=== PATIENT | female | born 2000 | race Caucasian/White ===

== ENCOUNTER 2019-05-08 19:14 | Day surgery (SDC) | payer SELFPAY ==
[2019-05-08] MEDS ORDERED: KETOROLAC 30 MG/ML VIAL IVP ONE (19:34)
[2019-05-08] MEDS ORDERED: 0.9 % SODIUM CHLORIDE 1,000 ML BAG IV ONE ×2 (19:34→22:50)
--- NOTE | 2019-05-08 19:37 | Emergency Department Record ---
History of Present Illness - General Chief Complaint: Abdominal Pain Stated Complaint: ABD PAIN Time Seen by Provider: 05/08/19 19:33 Source: Patient Mode of Arrival: Ambulatory Limitations: No limitations - History of Present Illness Initial Comments: 18 yo female presents with right side lower abdominal pain that comes and goes over the last three days. The pain is sharp. It last several hours at a time. No fever. No urinary discomfort. She actually reports some discomfort after a urination but not with urination itself. No blood in the stool or urine. No abdominal surgery history. Normal menstrual cycles. MD Complaint: Abdominal pain Onset/Timin -: Days(s) (3) Location: RLQ Migration to: Suprapubic Severity: Moderate Severity scale (1-10): 5 Consistency: Intermittent Improves With: Nothing Worsens With: Movement Associated Symptoms: Dysuria - Related Data LMP (females 10-50): 3 weeks ago Patient : No Allergies Allergy/AdvReac Type Severity Reaction Status Date / Time No Known Allergies Allergy PT UNSURE Verified 05/08/19 21:40 OF REACTION Travel Screening - Travel/Exposure Within Last 30 Days Have you traveled within the last 30 days?: No - Travel Symptoms Symptom Screening: None Past Medical History - SOCIAL HISTORY Smoking Status: Light tobacco smoker (<10/day) Alcohol Use: None Drug Use: None - RESPIRATORY Hx Respiratory Disorders: No - CARDIOVASCULAR Hx Cardio Disorders: No - NEURO Hx Neuro Disorders: No - GI Hx GI Disorders: No - Hx Genitourinary Disorders: No - ENDOCRINE Hx Endocrine Disorders: No - MUSCULOSKELETAL Hx Musculoskeletal Disorders: No - PSYCH Hx Psych Problems: No - HEMATOLOGY/ONCOLOGY Hx Hematology/Oncology Disorders: No Family Medical History Any Significant Family History?: Yes Hx Heart Disease: Father Physical Exam - General General Appearance: Alert, Oriented x3, Cooperative, No acute distress Limitations: No limitations - Head Head exam: Atraumatic, Normal inspection - Eye Eye exam: Normal appearance. negative: Conjunctival injection - ENT ENT exam: Normal exam Ear exam: Normal external inspection Nasal Exam: Normal inspection Mouth exam: Normal external inspection - Neck Neck exam: Normal inspection - Respiratory Respiratory exam: Normal lung sounds bilaterally. negative: Respiratory distress - Cardiovascular Cardiovascular Exam: Regular rate, Normal rhythm, Normal heart sounds - GI/Abdominal GI/Abdominal exam: Soft, Tenderness (tender but soft in the RLQ, otherwise the abdomen is very soft and non tender). negative: Distended, Guarding, Hypoactive bowel sounds, Rebound - Rectal Rectal exam: Deferred - exam: Vaginal discharge (moderate, whitish). negative: Abnormal external exam, Adnexal mass (L), Adnexal mass (R), Adnexal tenderness (L), Adnexal tenderness (R), Cervical discharge, cervical motion tenderness, Vaginal bleeding - Extremities Extremities exam: Normal inspection - Back Back exam: Denies: CVA tenderness (R), CVA tenderness (L), Paraspinal tenderness, Vertebral tenderness - Neurological Neurological exam: Alert, Oriented X3 - Psychiatric Psychiatric exam: Normal affect, Normal mood - Skin Skin exam: Dry, Intact, Normal color, Warm Course Vital Signs 05/08/19 19:18 Temperature 98.5 F Pulse Rate [ 76 Pulse Ox Probe] Respiratory 20 Rate Blood Pressure 125/83 [Left Arm] Pulse Ox 98 - Reevaluation(s) Reevaluation #1: 05/08/19 20:08 The CBC was reviewed WBC is 13 The HCG is negative The UA is negative 05/08/19 20:09 No acute process on CMP or Lipase 05/08/19 22:03 Wet prep is negative Pain controlled at this time waiting for CT scan. 05/08/19 22:[address] is consistent with appendicitis. 8-9 mm with mild stranding, no abscess, no free air The case was discussed with Dr Carrizales The plan is admission, OR tomorrow Medical Decision Making - Lab Data Result diagrams: 05/08/19 19:44 05/08/19 19:44 Disposition Disposition: Admit Clinical Impression: Appendicitis Qualifiers: Appendicitis type: acute appendicitis Acute appendicitis type: unspecified acute appendicitis type Qualified Code(s): K35.80 - Unspecified acute appendicitis Disposition: Still a Patient at [facility] Decision to Admit: Admit from ER Decision to Admit Date: 05/08/19 Decision to Admit Time: 22:59 Condition: (1) Good Time of Disposition: 22:59 Quality - Quality Measures Quality Measures: N/A - Blood Pressure Screening Does Patient Have Any of the Following: No Blood Pressure Classification: Hypertensive Reading Systolic Measurement: 132 Diastolic Measurement: 90 Screening for High Blood Pressure: < Pre-Hypertensive BP, F/U Documented > [G8950] Pre-Hypertensive Follow-up Interventions: Referral to alternative/primary care provider.
[2019-05-08 19:52] LABS: URINE APPEARANCE CLOUDY; URINE BILIRUBIN NEGATIVE (NEGATIVE); URINE BLOOD NEGATIVE (NEGATIVE); URINE COLOR YELLOW; URINE GLUCOSE (UA) NEGATIVE (NEGATIVE); URINE KETONE NEGATIVE (NEGATIVE); URINE LEUKOCYTE ESTERASE NEGATIVE (NEGATIVE); URINE NITRITE NEGATIVE (NEGATIVE); URINE PROTEIN NEGATIVE (NEGATIVE)
[2019-05-08 19:52] LABS: ABSOLUTE NEUTROPHIL COUNT 9.14; BASO % 0.2 % (0-6); EOS % 3.1 % (0-6); GRAN % 68.4 % (47-80); HEMATOCRIT 40.5 % (35.0-47.0); HEMOGLOBIN 13.6 gm/dl (11.6-16.0); LYMPH % 22.7 % (16-45); MEAN CELL VOLUME 86.5 fl (81-97); MEAN CORPUSCULAR HEMOGLOBIN 29.1 pg (27-33); MEAN CORPUSCULAR HGB CONC 33.6 g/dl (32-36); MEAN PLATELET VOLUME 11.3 fl (7.4-10.4); MONO % 5.6 % (0-9); PLATELET COUNT 314 K/uL (130-400); RED BLOOD COUNT 4.68 M/uL (3.80-5.40); RED CELL DISTRIBUTION WIDTH 12.8 % (11.5-14.5); WHITE BLOOD COUNT W/O DIFF 13.3 K/uL (4.2-12.2)
[2019-05-08 19:56] LABS: HCG,QUALITATIVE URINE NEGATIVE (NEGATIVE)
[2019-05-08 20:03] LABS: BLOOD UREA NITROGEN 11 mg/dL (6-20); CREATININE 0.6 mg/dL (0.5-0.9); LIPASE 18 U/L (13-60); TOTAL PROTEIN 7.9 g/dL (6.6-8.7)
[2019-05-08 20:05] LABS: GLUCOSE,RANDOM 110 mg/dL (74-109)
[2019-05-08 20:08] LABS: ALB/GLOB RATIO 1.5 (1.1-1.8); ALBUMIN 4.7 g/dL (4.0-5.0); ALKALINE PHOSPHATASE 85 U/L (35-104); ALT/SGPT 15 U/L (<33); AST/SGOT 17 U/L (10.0-35.0)
[2019-05-08] MEDS ORDERED: ERTAPENEM SODIUM 1 G in 0.9 % SODIUM CHLORIDE 100ML 100 ML IVPB ONE (22:50)
[2019-05-08] MEDS ORDERED: 0.9 % SODIUM CHLORIDE 1000ML 1,000 ML IV PRN (23:15)
[2019-05-08] MEDS ORDERED: ONDANSETRON HCL IV 4 MG/2 ML VIAL IVP PRN (23:15)
[2019-05-08] MEDS: MORPHINE SULFATE 10MG/1ML **1ML VIAL IVP PRN (23:59)
[2019-05-09] MEDS: ACETAMINOPHEN 1,000 MG/100 ML BTL IVPB SCH ×4 (00:05→18:07)
[2019-05-09] MEDS: MORPHINE SULFATE 10MG/1ML **1ML VIAL IVP PRN ×3 (04:21→16:54)
[2019-05-09] MEDS ORDERED: FAMOTIDINE 20MG TABLET PO ONE (14:00)
[2019-05-09] MEDS ORDERED: METOCLOPRAMIDE 10 MG TABLET PO ONE (14:00)
[2019-05-09] MEDS ORDERED: MECLIZINE 25 MG TABLET PO ONE (14:00)
[2019-05-09] MEDS ORDERED: 0.9 % SODIUM CHLORIDE 1000ML 1,000 ML IV ONE ×2 (14:35→15:12)
[2019-05-09] MEDS ORDERED: SCOPOLAMINE 1 PATCH TDSY TD ONE (14:59)
[2019-05-09] MEDS ORDERED: RINGERS SOLUTION,LACTATED 1,000 ML IV ONE (15:25)
[2019-05-09] MEDS ORDERED: BUPIVACAINE 0.25% W/EPI MPF 30ML VIAL SQ ONE ×2 (15:30)
--- NOTE | 2019-05-09 17:30 | Operative Note ---
DATE OF SURGERY: 05/08/2019 SURGEON: Regulo Carrizales DO PREOPERATIVE DIAGNOSIS: Acute appendicitis. POSTOPERATIVE DIAGNOSIS: Acute appendicitis. OPERATION: Laparoscopic appendectomy. INDICATION: The patient is a 18-year-old female who is having ongoing right lower quadrant pain. She went to [facility] where workup was done. Findings were consistent with acute appendicitis. We did discuss appendectomy. Risks, benefits, and alternatives were discussed. Risks include bleeding, infection, postop abscess formation. She understood this fully. PROCEDURE: After consent was signed and questions answered, she was taken to the operating room and placed in the supine position. General anesthesia was administered per the department of anesthesia. The patient's abdomen was prepped in the usual sterile fashion. The left arm was then tucked to the side. At this time, the infraumbilical region was anesthetized with a total of 5 mL of 0.25% Sensorcaine with epinephrine. A 2 cm infraumbilical incision was made. This was carried down to the anterior rectus fascia. This was incised. Bhavana clamps were placed on the fascial edges and brought up into the wound. Stay sutures of 0 Vicryl were placed. Posterior rectus sheath was identified and incised. The peritoneal cavity was entered bluntly. At this time, a 10 mm blunt Edwin port was placed. Adequate pneumoperitoneum established. Under direct visualization, additional 5 mm right subcostal and 5 mm suprapubic ports were placed. The patient was then rotated into a steep Trendelenburg position with rotation to the left. Appendix was located in the right mid abdomen. This was lifted anteriorly. Mesoappendix was taken down serially with the IVANA Harmonic. This was taken down to the base of the appendix. Of note, the appendix was dilated and inflamed consistent with acute appendicitis. At this time, an Endo-MAICOL 45 mm stapling device was used to transect the appendix at the base of the cecum. This was then placed in the EndoCatch bag and brought out through the umbilical port. The right lower quadrant was rechecked and found to be hemostatic. No bleeding, no leakage from the staple line, no purulent fluid noted. The rest of the external exam with small and large bowel was normal. Pelvis appeared normal. At this time, the patient was leveled out, pneumoperitoneum was released. All ports were removed. The fascia was closed with 0 Vicryl in a [id number] fashion. The skin of all 3 ports was closed with 4-0 Vicryl. She was taken to the recovery room in stable condition. FINDINGS ON SURGERY: Acute appendicitis without abscess or rupture. MTDD
[2019-05-09] MEDS ORDERED: SUGAMMADEX SODIUM 200 MG/2 ML VIAL IV ONE (18:29)
[2019-05-09] MEDS ORDERED: KETOROLAC 30 MG/ML VIAL IVP ONE (18:29)
[2019-05-09] MEDS ORDERED: DIPHENHYDRAMINE HCL 50 MG/ML VIAL IVP ONE (18:29)
[2019-05-09] MEDS ORDERED: PROPOFOL 10 MG/ML VIAL IV ONE (18:29)
[2019-05-09] MEDS ORDERED: SEVOFLURANE 250 ML INH ONE (18:29)
[2019-05-09] MEDS ORDERED: DEXAMETHASONE 4 MG/ML 1ML VIAL IVP ONE (18:29)
[2019-05-09] MEDS ORDERED: FENTANYL PF 100MCG/2ML VIAL IV ONE (18:29)
[2019-05-09] MEDS ORDERED: SUCCINYLCHOLINE 20 MG/ML 10ML IVP ONE (18:29)
[2019-05-09] MEDS ORDERED: ROCURONIUM BROMIDE 50MG/5ML VIAL IV ONE (18:29)
[2019-05-09] MEDS ORDERED: LIDOCAINE 2% MDV (20MG/ML) 20ML VIAL IV ONE (18:29)
[2019-05-09] MEDS ORDERED: MIDAZOLAM HCL 2MG/2ML VIAL IV ONE (18:29)
[2019-05-09] MEDS ORDERED: ONDANSETRON HCL IV 4 MG/2 ML VIAL IVP ONE (18:29)
[2019-05-09 21:12] LABS: GC SPECIMEN TYPE Vaginal
[2019-05-09] MEDS ORDERED: ERTAPENEM SODIUM 1 G in 0.9 % SODIUM CHLORIDE 100ML 100 ML IVPB SCH (23:00)
--- NOTE | 2019-05-10 06:03 | CT SCAN REPORT ---
EXAM: CT SCAN ABDOMEN/PELVIS W CONTRAST HISTORY: 18-YEAR-OLD FEMALE WITH ABDOMINAL PAIN, RIGHT LOWER QUADRANT. TECHNIQUE: Routine CT images of the abdomen and pelvis were obtained following intravenous administration of contrast. Amount and type of contrast in the medical record. COMPARISON: None. FINDINGS: Visualized lung bases are unremarkable. Liver, gallbladder, biliary tree, pancreas, spleen, and adrenals are unremarkable. There are punctate 2 mm intrarenal calculi bilaterally. No ureteral calculi or hydronephrosis. No gastrointestinal inflammatory change. The appendix is mildly dilated measuring 8 mm in caliber. There is minimal periappendiceal fat stranding. Findings are suggestive of early acute appendicitis given patient's clinical history. Bladder unremarkable. Uterus is present. There is a 2.7 cm right ovary cyst, probably a functional cyst. Aorta enhances normally with contrast. No abdominal or pelvic lymphadenopathy. No free air or significant free air. Abdominal wall soft tissues are unremarkable. No acute osseous abnormality. IMPRESSION: 1. FINDINGS COMPATIBLE WITH EARLY ACUTE APPENDICITIS. MINIMAL APPENDICEAL DILATION AND PERIAPPENDICEAL FAT STRANDING. 2. NONOBSTRUCTING INTRARENAL CALCULI. 3. A 2.7 CM RIGHT OVARIAN CYST, PROBABLY A FUNCTIONAL CYST. JOB NUMBER: [id number] MTDD
== END 2019-05-09 18:30 | disposition home or self-care (01) ==
LOC: ER 19:14 → MEDSURG 23:14 → SUR 23:14 → UNDOADMOB 23:14 → MEDSURG 23:14 → UNDOADMOB 23:53 → MEDSURG 23:53 → SUR 05-09 18:30 → UNDODISOB 05-09 18:30
PROVIDERS: ATTEND Surgery
DX: K35.80 Unspecified acute appendicitis (principal); F17.210 Nicotine dependence, cigarettes, uncomplicated
CPT/HCPCS: 74177; 80053; 81003; 81025; 83690; 85025; 87210; 96365; 96374; 99285; J0330; J1200; J1885; J2270; J2405; J3490; J7030; J7120

== ENCOUNTER 2019-10-21 11:48 | Emergency (ER) | payer MEDICAID ==
[2019-10-21] MEDS ORDERED: ONDANSETRON 4 MG ODT TABLET SL ONE (12:15)
[2019-10-21] MEDS ORDERED: ACETAMINOPHEN 325 MG TAB PO ONE (12:15)
--- NOTE | 2019-10-21 12:19 | Emergency Department Record ---
History of Present Illness - General Chief complaint: Flu Like Symptoms Stated complaint: FLU LIKE SYMPTOMS Time Seen by Provider: 10/21/19 12:04 Source: Patient Mode of Arrival: Ambulatory Limitations: No limitations - History of Present Illness Initial comments: The patient is here due to a 3 hour hx of nausea, mild dry heaves and 3-4 episodes of loose watery stools. She is having mild abdominal cramping also. There is no hx of fever, back pain, dysuria, or any vaginal issues. The patient states her boyfriend was ill with the same complaints the last 2 days. MD complaint: Diarrhea, Nausea Onset/Timin -: Hour(s) Severity: Moderate Severity scale (1-10): 5 Consistency: Constant - Related Data Previous Rx's Medication Instructions Recorded Ondansetron [Zofran Odt] 4 mg SL .Q4-6H PRN #12 tab.rapdis 10/21/19 Allergies Allergy/AdvReac Type Severity Reaction Status Date / Time No Known Allergies Allergy PT UNSURE Verified 05/08/19 21:40 OF REACTION Travel Screening - Travel/Exposure Within Last 30 Days Have you traveled within the last 30 days?: No - Travel/Exposure Within Last Year Have you traveled outside the [place] in the last year?: No - Additonal Travel Details Have you been exposed to anyone with a communicable illness?: No - Travel Symptoms Symptom Screening: Diarrhea, Vomiting, Stomach Pain, Lack of Appetite Review of Systems Constitutional: Denies: Chills, Fever Eyes: Denies: Eye discharge ENT: Denies: Congestion Respiratory: Denies: Cough, Dyspnea Past Medical History - SOCIAL HISTORY Smoking Status: Light tobacco smoker (<10/day) Alcohol Use: None Drug Use: None - RESPIRATORY Hx Respiratory Disorders: No - CARDIOVASCULAR Hx Cardio Disorders: No - NEURO Hx Neuro Disorders: No - GI Hx GI Disorders: Yes Hx Abdominal Pain: Yes (RLQ) - Hx Genitourinary Disorders: No - ENDOCRINE Hx Endocrine Disorders: No - MUSCULOSKELETAL Hx Musculoskeletal Disorders: No - PSYCH Hx Psych Problems: No - HEMATOLOGY/ONCOLOGY Hx Hematology/Oncology Disorders: No Family Medical History Any Significant Family History?: Yes Hx Heart Disease: Father Hx Stroke: Grandparents Physical Exam - General General Appearance: Alert, Oriented x3, Cooperative, No acute distress - Head Head exam: Atraumatic, Normocephalic, Normal inspection - Eye Eye exam: Normal appearance, PERRL - ENT Throat exam: Normal inspection. negative: Tonsillar erythema, Tonsillar exudate - Neck Neck exam: Normal inspection, Full ROM. negative: Tenderness - Respiratory Respiratory exam: Normal lung sounds bilaterally. negative: Respiratory distress - Cardiovascular Cardiovascular Exam: Regular rate, Normal rhythm, Normal heart sounds - GI/Abdominal GI/Abdominal exam: Soft, Normal bowel sounds. negative: Rebound, Rigid, Tenderness - Extremities Extremities exam: Normal inspection, Full ROM, Normal capillary refill. negative: Tenderness - Neurological Neurological exam: Alert. negative: Motor sensory deficit Course Vital Signs 10/21/19 11:51 Temperature 97.7 F Pulse Rate 84 Respiratory 18 Rate Blood Pressure 123/71 Pulse Ox 98 - Reevaluation(s) Reevaluation #1: The patient is doing a lot better at this time. She states her nausea has resolved and the mild cramping she was experiencing is now gone. On exam her temp is normal and her abdomen very soft and nontender. I did discuss the need f or 2 days off work and to use the Zofran for nausea. 10/21/19 13:16 Medical Decision Making - Data Complexity MDM Data: Labs Ordered and/or Reviewed Disposition Disposition: Discharge Clinical Impression: Gastroenteritis Disposition: Home, Self-Care Condition: (2) Stable Instructions: Acute Nausea and Vomiting (ED) Additional Instructions: Please use the Zofran for nausea and drink plenty of fluids. Use Motrin or Tylenol for pain and rest and be off work 2 days. Return to the ER for any worsening vomiting, diarrhea, fever or pain. Prescriptions: Ondansetron [Zofran Odt] 4 mg SL .Q4-6H PRN #12 tab.rapdis PRN Reason: Nausea Forms: Patient Portal Access Time of Disposition: 13:14 Quality - Quality Measures Quality Measures: N/A - Blood Pressure Screening View Details: Yes Does Patient Have Any of the Following: No Blood Pressure Classification: Pre-Hypertensive BP Reading Systolic Measurement: 123 Diastolic Measurement: 71 Screening for High Blood Pressure: < Pre-Hypertensive BP, F/U Documented > [G8950] Pre-Hypertensive Follow-up Interventions: Referral to alternative/primary care provider.
[2019-10-21 13:02] LABS: URINE APPEARANCE CLEAR; URINE BILIRUBIN NEGATIVE (NEGATIVE); URINE BLOOD NEGATIVE (NEGATIVE); URINE COLOR YELLOW; URINE GLUCOSE (UA) NEGATIVE (NEGATIVE); URINE KETONE 15 mg/dL (NEGATIVE); URINE LEUKOCYTE ESTERASE NEGATIVE (NEGATIVE); URINE NITRITE NEGATIVE (NEGATIVE); URINE PROTEIN NEGATIVE (NEGATIVE)
[2019-10-21 13:06] LABS: HCG,QUALITATIVE URINE NEGATIVE (NEGATIVE)
== END 2019-10-21 13:22 | disposition home or self-care (01) ==
LOC: ER 11:48
DX: K52.9 Noninfective gastroenteritis and colitis, unspecified (principal); R10.31 Right lower quadrant pain; R11.0 Nausea; F17.210 Nicotine dependence, cigarettes, uncomplicated
CPT/HCPCS: 81003; 81025; 99283